=== PATIENT | female | born 1965 | race Hispanic/Latino ===

== ENCOUNTER 2018-07-24 01:20 | Emergency (ER) | payer OTHER ==
[2018-07-24 01:32] VITALS: RESP 18; O2SAT 98
--- NOTE | 2018-07-24 02:00 | ED PDOC ---
Arrival/HPI - General Chief Complaint: GI Problem Time Seen by Provider: 07/24/18 01:23 Historian: Patient - History of Present Illness Narrative History of Present Illness (Text): 07/24/18 01:58 Latonia Prather is a 53 year old female, whose past medical history includes hyperlipidemia, hypothyroidism, and GERD, who presents to the Emergency department complaining of abdominal pain. Patient states she has been experiencing generalized, gas-like abdominal pain for the past 4 days with associated nausea, and 1 episode of vomiting a few days prior. Patient also notes she was holding her granddaughter earlier today when she bent over to grab an item and strained her lower back. Patient denies any fever, chills, chest pain, shortness of breath, diarrhea, urinary symptoms, neck pain, headache, dizziness, or any other complaints. Symptom Onset: Gradual Symptom Course: Unchanged Activities at Onset: Light Context: Home Past Medical History - Provider Review Nursing Documentation Reviewed: Yes - Infectious Disease Hx of Infectious Diseases: None - Endocrine/Metabolic Hx Hyperthyroidism: Yes - Psychiatric Hx Substance Use: No - Surgical History Hx Hysterectomy: Yes (partial) - Anesthesia Hx Anesthesia: Yes Hx Anesthesia Reactions: No Hx Malignant Hyperthermia: No Family/Social History - Physician Review Nursing Documentation Reviewed: Yes Family/Social History: Unknown Family HX Smoking Status: Never Smoked Hx Alcohol Use: Yes Hx Substance Use: No Allergies/Home Meds Allergies/Adverse Reactions: Allergies No Known Allergies Allergy (Verified 07/24/18 01:23) Home Medications: Home Meds Medication Instructions Recorded Confirmed Levothyroxine [Synthroid] 25 mcg PO DAILY 12/26/15 Amoxicillin 500 mg PO TID 07/24/18 07/24/18 Atorvastatin [Lipitor] 20 mg PO DAILY 07/24/18 07/24/18 Review of Systems - Physician Review All systems were reviewed & negative as marked: Yes - Review of Systems Constitutional: Normal. absent: Fevers Eyes: Normal ENT: Normal Respiratory: Normal. absent: SOB, Cough Cardiovascular: Normal. absent: Chest Pain Gastrointestinal: Abdominal Pain, Nausea, Vomiting. absent: Diarrhea Genitourinary Female: Normal. absent: Dysuria, Frequency, Hematuria Musculoskeletal: Back Pain. absent: Neck Pain Skin: Normal. absent: Rash Neurological: Normal. absent: Headache, Dizziness Endocrine: Normal Hemo/Lymphatic: Normal Psychiatric: Normal Physical Exam Vital Signs Reviewed: Yes Vital Signs Temp Pulse Resp BP Pulse Ox 07/24/18 01:27 98.5 F 89 18 150/92 H 98 Temperature: Afebrile Blood Pressure: Normal Pulse: Regular Respiratory Rate: Normal Appearance: Positive for: Well-Appearing, Non-Toxic, Comfortable Pain Distress: None Mental Status: Positive for: Alert and Oriented X 3 - Systems Exam Head: Present: Atraumatic, Normocephalic Pupils: Present: PERRL Extroacular Muscles: Present: EOMI Conjunctiva: Present: Normal Mouth: Present: Moist Mucous Membranes Neck: Present: Normal Range of Motion. No: Meningeal Signs, MIDLINE TENDERNESS, Paraspinal Tenderness Respiratory/Chest: Present: Clear to Auscultation, Good Air Exchange. No: Respiratory Distress, Accessory Muscle Use Cardiovascular: Present: Regular Rate and Rhythm, Normal S1, S2. No: Murmurs Abdomen: No: Tenderness, Distention, Peritoneal Signs Back: Present: Normal Inspection. No: CVA Tenderness, Midline Tenderness, Paraspinal Tenderness Upper Extremity: Present: Normal Inspection. No: Cyanosis, Edema Lower Extremity: Present: Normal Inspection. No: Edema Neurological: Present: GCS=15, CN II-XII Intact, Speech Normal Skin: Present: Warm, Dry, Normal Color. No: Rashes Psychiatric: Present: Alert, Oriented x 3, Normal Insight, Normal Concentration Medical Decision Making ED Course and Treatment: 07/24/18 01:58 Impression: 53 year old female complaining of gas-like abdominal pain, nausea, and back pain. Plan: -- Labs, lipase -- IV fluids -- Toradol -- Pepcid -- Reassess and disposition Progress Notes: 07/24/18 04:40 CT Abdomen and Pelvis: FINDINGS: LUNG BASES: The lung bases appear clear. No pleural effusions are seen. LIVER: Unremarkable. GALLBLADDER AND BILE DUCTS: The gallbladder appears within normal limits. No radioopaque gallstones are seen. No biliary ductal dilatation is evident. PANCREAS: Unremarkable. SPLEEN: Unremarkable. ADRENAL GLANDS: Unremarkable. KIDNEYS, URETERS, AND BLADDER: The kidneys appear within normal limits. There is no hydronephrosis or hydroureter. No urinary calculi are seen. STOMACH AND BOWEL: There is diffuse diverticulosis noted involving descending and sigmoid colon. No evidence of acute diverticulitis. APPENDIX: No evidence of acute appendicitis on CT examination. PERITONEUM: No free fluid. No free air. LYMPH NODES: No lymphadenopathy is evident. REPRODUCTIVE: Status post complete hysterectomy. VASCULATURE: No evidence of abdominal aortic aneurysm. BONES: No aggressive appearing osseous lesion. No acute osseous pathology evident. MISCELLANEOUS: Small fat-containing umbilical hernia is noted. IMPRESSION: 1. There is diffuse diverticulosis noted involving descending and sigmoid colon. No evidence of acute diverticulitis. 2. Small fat-containing umbilical hernia is noted. 3. Status post complete hysterectomy. Electronically signed on Jul 24, 2018 4:38:39 AM EST by: Raheem Hunt M.D., BRENDA Certified By [facility] Fellowship Trained MRI and CT Specialist 07/24/18 04:56 On re-evaluation, patient feels better and is in no acute distress. I have discu ssed the results and plan with the patient, who expresses understanding. Patient in agreement with plan to be discharged home. Patient is stable for discharge. Patient was instructed to follow up with physician or return if symptoms worsen or new concerning symptoms arise. - Lab Interpretations I have reviewed the lab results: Yes - RAD Interpretation Manufacturing [employer] Leader: Radiologist - Scribe Statement The provider has reviewed the documentation as recorded by the Aleksander Pabon Provider Scribe Attestation: All medical record entries made by the Ousmaneibe were at my direction and personally dictated by me. I have reviewed the chart and agree that the record accurately reflects my personal performance of the history, physical exam, medical decision making, and the department course for this patient. I have also personally directed, reviewed, and agree with the discharge instructions and disposition.\ Disposition/Present on Arrival - Present on Arrival Any Indicators Present on Arrival: No History of DVT/PE: No History of Uncontrolled Diabetes: No Urinary Catheter: No History of Decub. Ulcer: No History Surgical Site Infection Following: None - Disposition Have Diagnosis and Disposition been Completed?: Yes Diagnosis: Gastritis, Low back strain Disposition: HOME/ ROUTINE Disposition Time: 04:56 Patient Plan: Discharge Patient Problems: Current Active Problems Problem Status Onset Gastritis Acute Low back strain Acute Condition: GOOD Discharge Instructions (ExitCare): Lumbar Muscle Strain (DC), Gastritis (DC) Additional Instructions: Rest/no strenuous physical activity/no lifting/bland diet next couple of days/take meds as prescribed/follow up with your doctor this week Prescriptions: Phenobarb/Hyoscy/Atropine/Scop [ Tablet] 16.2 mg PO Q6 PRN #12 tablet PRN Reason: Dyspepsia Famotidine [Pepcid] 20 mg PO BID PRN #24 tab PRN Reason: Dyspepsia traMADol/Acetaminophen [Ultracet 325 MG-37.5 MG] 1 tab PO Q6 PRN #14 tab PRN Reason: Pain Referrals: Russell Butt DO [Primary Care Provider] - Follow up with primary Forms: [employer] (Swedish)
[2018-07-24] MEDS ORDERED: Sodium Chloride 0.9% 1,000 ML IV STA (02:07)
[2018-07-24 02:32] LABS: HEMOGLOBIN 13.2 g/dL (12.0-16.0); MEAN CELL VOLUME 76.2 fl (80.0-105.0); MEAN CORPUSCULAR HGB CONC 32.8 g/dl (31.0-37.0); MEAN PLATELET VOLUME 9.3 fl (7.0-11.0); RBC 5.29 10^6/uL (3.5-6.1); RED CELL DISTRIBUTION WIDTH 13.3 % (11.5-14.5); WHITE BLOOD COUNT 7.2 10^3/uL (4.5-11.0)
[2018-07-24 02:41] LABS: ALB/GLOB RATIO 1.3 (1.1-1.8); ALBUMIN 4.3 g/dL (3.0-4.8); ALT/SGPT 34 U/L (7-56); AST/SGOT 34 U/L (14-36); BLOOD UREA NITROGEN 20 mg/dL (7-21); CALCIUM 9.5 mg/dL (8.4-10.5); GFR NON-AFRICAN AMERICAN > 60; LIPASE 166 U/L (23-300)
[2018-07-24] MEDS ORDERED: Iohexol 350 MG/100 ML VIAL ONE (03:16)
[2018-07-24 04:35] VITALS: BP 126/71; PULSE 66
[2018-07-24 05:15] VITALS: TEMP 98.1
--- NOTE | 2018-07-24 09:03 | CT ---
Date of service: 07/24/2018 PROCEDURE: CT Abdomen and Pelvis with contrast HISTORY: Abdominal pain. Relevant surgical history: Hysterectomy COMPARISON: 12/27/2015 CT abdomen and pelvis. 12/26/2015 pelvic ultrasound TECHNIQUE: Intravenous contrast dose: 100 cc Omnipaque 350. Radiation dose: Total exam DLP = 250.75 mGy-cm. This CT exam was performed using one or more of the following dose reduction techniques: Automated exposure control, adjustment of the mA and/or kV according to patient size, and/or use of iterative reconstruction technique. FINDINGS: LOWER THORAX: Unremarkable. LIVER: Unremarkable. No gross lesion or ductal dilatation. GALLBLADDER AND BILE DUCTS: Unremarkable. PANCREAS: Unremarkable. No gross lesion or ductal dilatation. SPLEEN: Unremarkable. ADRENALS: Unremarkable. No mass. KIDNEYS AND URETERS: Unremarkable. No hydronephrosis. No solid mass. VASCULATURE: Unremarkable. No aortic aneurysm. No atherosclerotic calcification or mural plaque present. BOWEL: Diverticulosis without an acute inflammatory component or other associated pathologic process. APPENDIX: A normal appendix is visualized in it's entirety. PERITONEUM: Unremarkable. No free fluid. No free air. LYMPH NODES: Unremarkable. No enlarged lymph nodes. BLADDER: Unremarkable. REPRODUCTIVE: Prior hysterectomy. BONES: No acute fracture. OTHER FINDINGS: None. IMPRESSION: No acute findings related to/ accounting for the clinical presentation. Additional benign and/or incidental findings described above. No significant interval change compared to the prior examination(s). Concordant results (preliminary interpretation) provided by [employer] by [employer]. Procedure Completed: 03:23. Preliminary Report: Dictated and Authenticated: 04:38. Final Interpretation: 08:59. July 24, 2018
== END 2018-07-24 05:15 | disposition home or self-care (01) ==
LOC: ED 01:20
DX: K29.70 Gastritis, unspecified, without bleeding (principal); S39.012A Strain of muscle, fascia and tendon of lower back, initial encounter; X58.XXXA Exposure to other specified factors, initial encounter; E78.5 Hyperlipidemia, unspecified; E03.9 Hypothyroidism, unspecified
CPT/HCPCS: 74177; 80053; 83690; 85027; 96361; 96374; 96375; 99283; J1885; J7030; Q9967